=== PATIENT | female | born 1945 | race Caucasian/White ===

== ENCOUNTER 2017-01-03 19:09 | Emergency (ER) | payer MEDICARE, OTHER ==
[~2017-01-03] VITALS: Ht 165.1 cm; Wt 100.0 kg
[2017-01-03] MEDS ORDERED: SERT100T5 PO (20:09)
[2017-01-03] MEDS ORDERED: INSU100V8 SQ (20:09)
[2017-01-03] MEDS ORDERED: SODI325T PO (20:09)
[2017-01-03] MEDS ORDERED: ATOR40TA78 PO (20:09)
[2017-01-03] MEDS ORDERED: INSU100I17 SC (20:09)
[2017-01-03] MEDS ORDERED: GABA300C10 PO (20:09)
[2017-01-03] MEDS ORDERED: METO25TA35 PO (20:09)
[2017-01-03] MEDS ORDERED: LEVO125T5 PO (20:09)
[2017-01-03] MEDS ORDERED: CHOL2000 PO (20:09)
[2017-01-03] MEDS ORDERED: TRIA15CR3 TRANSTRAC (20:09)
[2017-01-03] MEDS ORDERED: SODIUM CHLORIDE FLUSH 10ML SYR IVF ONE (21:30)
[2017-01-03] MEDS ORDERED: SODIUM CHLORIDE 0.9% 1,000ML IVBOLUS ONE (21:30)
[2017-01-03 21:34] LABS: HEMATOCRIT 43.3 % (34.6-47.8); WHITE BLOOD COUNT 8.2 x10^3/uL (3.4-10)
[2017-01-03 21:47] LABS: ASPARTATE AMINO TRANSFERASE 26 U/L (15-37); BLOOD UREA NITROGEN 42 mg/dL (7-18)
[2017-01-03] MEDS ORDERED: SODIUM CHLORIDE 0.9%, 500ML IVBOLUS ONE (22:00)
[2017-01-04] MEDS ORDERED: FUROSEMIDE 20 MG/2 ML IV ONE (02:30)
[2017-01-04] MEDS ORDERED: FUROSEMIDE 20 MG/2 ML ONE (02:46)
[2017-01-04 04:45] VITALS: BP 166/72
[2017-01-04] MEDS ORDERED: OMNIPAQUE 350 MG/ML, 100ML BOTTLE ONE (05:01)
== END 2017-01-04 05:01 | disposition other institution (70) ==
LOC: ED 23:59
DX: E11.65 Type 2 diabetes mellitus with hyperglycemia (principal); J81.1 Chronic pulmonary edema; R91.1 Solitary pulmonary nodule; J96.01 Acute respiratory failure with hypoxia; Z87.891 Personal history of nicotine dependence
CPT/HCPCS: 36415; 71020; 71275; 80053; 81001; 82010; 82962; 83880; 85025; 85379; 87086; 93005; 96374; 99285; J1940; J7030; J7040; Q9967